=== PATIENT | female | born 1990 | race Caucasian/White ===

== ENCOUNTER 2017-07-25 18:05 | Outpatient (CLI) | payer BC ==
[2017-07-25 18:31] VITALS: BP 130/79; PULSE 89; RESP 16; TEMP 98.2
--- NOTE | 2017-07-25 20:18 | P.MSEPDOC ---
Presenting Problems - Arrival Data Date of Arrival on Unit: 07/25/17 Time of Arrival on Unit: 18:05 Mode of Transport: Ambulatory - Complaint OB-Reason for Admission/Chief Complaint: Syncope/Fainting Spell Medical History - Information : 2 Para: 1 Term: 1 : 0 Abortions: Spontaneous or Elective: 0 Number of Living Children: 1 - Gestational Age Gestational Age by SUSANA (wks/days): 29 Weeks and 5 Days Review of Systems - Review of Systems Constitutional: No problems Breast: No problems ENT: No problems Cardiovascular: No problems Respiratory: No problems Gastrointestinal: No problems Genitourinary: No problems Musculoskeletal: No problems Neurological: No problems Skin: No problems Vital Signs - Temperature Temperature: 98.2 F Temperature Source: Oral - Pulse Right Sitting Brachial Pulse Rate: 89 Pulse Assessment Method: Automatic Cuff - Respirations Respiratory Rate: 16 Oxygen Delivery Method: Room Air O2 Sat by Pulse Oximetry: 99 - Blood Pressure Right Arm Sitting Blood Pressure: 130/79 Blood Pressure Mean: 96 Blood Pressure Source: Automatic Cuff Medical Screen Scoring (Pre) - Cervical Exam Dilation: Exam Deferred Effacement: Exam Deferred Membranes: Intact - Uterine Contractions Frequency: N/A Duration: N/A Intensity: N/A - Maternal Vital Signs Maternal Temperature: N/A Maternal Blood Pressure: N/A Signs of Preeclampsia: N/A Maternal Respirations: N/A - Total Score Total Score (Pre): 0 - Level of Risk Level of Risk: Low (0-5) Physician Notification (Pre) - Physician Notified Physician Notified Date: 07/25/17 Physician Notified Time: 18:25 Physician/Practitioner Notifed:: Shay Spoke With: Shay New Order Received: Yes - Notification Comment Comment: Negative Amnisure, OB spec exam-advsd pt to purchase Monistat 3 OTC. Has appt 08/01/17. Disposition - Disposition OB Disposition: Discharge to home, Written follow up instructions reviewed Discharge Date: 07/25/17 I agree with the RN Medical Screening Exam: Yes Risk & Benefit of care provided described in d/c instruction: Yes Diagnosis: FALSE LABOR BEFORE 37 COMPLETED WEEKS OF GEST, THIRD TRI
== END 2017-07-25 18:38 | disposition home or self-care (01) ==
LOC: FBPOP 18:05
PROVIDERS: ATTEND Obstetrics & Gynecology
DX: O47.03 False labor before 37 completed weeks of gestation, third trimester (principal); Z3A.29 29 weeks gestation of pregnancy
CPT/HCPCS: 59025; 99213

== ENCOUNTER 2017-10-01 05:32 | Inpatient (IN) | payer BC ==
[2017-10-01] MEDS ORDERED: OXYTOCIN 20 UNITS/1000 ML NS 1,000 ML IV SCH ×2 (05:46→13:02)
[2017-10-01] MEDS ORDERED: METHYLERGONOVINE 0.2 MG/ML 1 ML AMP IM PRN (05:46)
[2017-10-01] MEDS ORDERED: CARBOPROST TROMETHAMINE 250 MCG/ML 1 ML AMP IM PRN (05:46)
[2017-10-01] MEDS ORDERED: OXYTOCIN 10 UNIT/ML 1 ML VIAL IM PRN (05:46)
[2017-10-01] MEDS ORDERED: LACTATED RINGERS 1,000 ML IV SCH (05:46)
[2017-10-01] MEDS ORDERED: LIDOCAINE 1% (PF) 10 MG/ML (30 ML SDV) SQ PRN (05:46)
[2017-10-01] MEDS ORDERED: TERBUTALINE 1 MG/ML VIAL SQ PRN (05:46)
[2017-10-01 06:21] LABS: Basophils % (A) 1 %; Eosinophils # (A) 0.1 k/uL (0-0.7); Eosinophils % (A) 1 %; HCT 40.8 % (34.0-46.0); HGB 13.7 gm/dL (11.4-16.0); Lymphocytes # (A) 2.2 k/uL (1.0-4.8); Lymphocytes % (A) 27 %; MCH 31.5 pg (25.0-35.0); MCHC 33.6 g/dL (31.0-37.0); MCV 93.8 fL (80.0-100.0); Mean Platelet Volume 7.1; Monocytes # (A) 0.5 k/uL (0-1.0); Monocytes % (A) 6 %; Neutrophils % (A) 63 %; Platelet Count 199 k/uL (150-450); RBC 4.35 m/uL (3.80-5.40); RDW 14.2 % (11.5-15.5)
--- NOTE | 2017-10-01 06:22 | P.HPOB ---
History of Present Illness H&P Date: 10/01/17 Chief Complaint: Requesting induction of labor This patient is a pleasant 27-year-old 3 para 1 female estimated date of confinement 10/05/2017 estimated gestational age 39-3/7 weeks who presents to labor and delivery for requested induction of labor. She is care has been uncomplicated. Patient comfortable has a favorable cervix requesting induction at this time. Review of Systems Gastrointestinal: Reports heartburn Genitourinary: Reports Menstruation: Reports amenorrhea Past Medical History Past Medical History: No Reported History History of Any Multi-Drug Resistant Organisms: None Reported Additional Past Surgical History / Comment(s): Patient's had bilateral ear tube placement. Past Anesthesia/Blood Transfusion Reactions: No Reported Reaction Past Psychological History: No Psychological Hx Reported Smoking Status: Never smoker Past Alcohol Use History: None Reported Past Drug Use History: None Reported - Past Family History Mother Family Medical History: No Reported History Medications and Allergies Home Medications Medication Instructions Recorded Confirmed Type Iba-Jcrj-Bagzc Acid 1 each PO DAILY 07/08/14 10/01/17 History [-U Capsule] Allergies Allergy/AdvReac Type Severity Reaction Status Date / Time No Known Allergies Allergy Verified 10/01/17 05:45 Exam - Vital Signs Vital signs: Intake and Output 09/30/17 09/30/17 10/01/17 14:59 22:59 06:59 Other: # Voids 1 Weight 75.75 kg - OBG Physical Exam Abdomen: bowel sounds normal, no diffuse tenderness, no bruit present, no guarding noted, no hepatomegaly, no splenomegaly, no mass Vulva: both: normal Vagina: normal moisture, no discharge Cervix: no lesion (Cervix is 2 cm dilated 50% effaced -2 station.), no discharge Uterus: enlarged (Fundal height is 39 cm.) Results blood work shows she is A positive, rubella immune, RPR nonreactive, hepatitis B negative, Glucola was normal, group B strep was negative, ultrasounds shows normal anatomy with estimated weight at 7-1/2-7-3/4 pounds. Assessment and Plan Assessment: This is a pleasant 27-year-old 3 para 1 female 39-3/7 weeks gestation who is admitted to labor and delivery for requested induction of labor. Plan is induction of labor and anticipate vaginal delivery. (1) Third trimester Current Visit: Yes Status: Acute Code(s): Z34.93 - ENCNTR FOR SUPRVSN OF NORMAL PREG, UNSP, THIRD TRIMESTER SNOMED Code(s): 25999196 (2) Elective induction of labor planned Current Visit: Yes Status: Acute Code(s): ZGY9481 - SNOMED Code(s): 012468108
[2017-10-01 08:18] VITALS: BMI 32.5
[2017-10-01] MEDS ORDERED: BUPIVACAINE (PF) 0.25% 30 ML VIAL ONE (09:46)
[2017-10-01] MEDS ORDERED: fentaNYL (PF) 50 MCG/ML 5 ML AMP ONE (09:46)
[2017-10-01] MEDS ORDERED: SODIUM CHLORIDE 0.9% 100 ML BAG ONE (09:46)
[2017-10-01] MEDS ORDERED: ZOLPIDEM 5 MG TAB PO PRN (13:02)
[2017-10-01] MEDS ORDERED: LANOLIN CREAM 5 GM TUBE TOPICAL PRN (13:02)
[2017-10-01] MEDS ORDERED: HYDROCORTISONE 2.5% RECTAL CREAM 30 GM TUBE RECTAL PRN (13:02)
[2017-10-01] MEDS ORDERED: ACETAMINOPHEN TAB 325 MG TAB PO PRN (13:02)
[2017-10-01] MEDS ORDERED: BISACODYL 10 MG SUPP RECTAL PRN (13:02)
[2017-10-01] MEDS ORDERED: BENZOCAINE/MENTHOL SPRAY 1 GM/SPRAY AEROSOL TOPICAL PRN (13:02)
[2017-10-01] MEDS ORDERED: diphenhydrAMINE 25 MG CAP PO PRN (13:02)
[2017-10-01] MEDS ORDERED: SIMETHICONE 80 MG CHEWABLE PO PRN (13:02)
[2017-10-01] MEDS ORDERED: WITCH HAZEL 1 EACH MED..PAD TOPICAL PRN (13:02)
[2017-10-01] MEDS ORDERED: diphenhydrAMINE 50 MG/ML 1 ML VIAL IVP PRN (13:02)
--- NOTE | 2017-10-01 13:20 | P.PROBDLV ---
Vaginal Delivery Note - . Vaginal Delivery Note: Normal vaginal delivery viable female Apgars 8 and 9 delivery time is 1254 hrs. Please see dictated H&P for intimate details of this patient's admission. In brief summary this is a pleasant 27-year-old 3 para 1 female 39-3/7 weeks gestation who is admitted to labor and delivery for requested induction of labor. On admission patient is to simmers dilated has artificial rupture membranes for clear fluid. Labor is induced with Pitocin per protocol. Patient progresses quickly and does get an epidural for pain control. Patient then gets to complete pushes approximately 2 or 3 times pushes the head to the perineum. Posterior perineum was supported and we have controlled delivery of the 's head over the perineum. Mouth and nares are bulb suctioned. There is a nuchal cord which is very loose. Gentle downward traction we have delivery the anterior and posterior shoulder and rest this infant's body. Is a vigorous viable female Apgars are 8 and 9 delivery time is 1254 hrs. After delivery of the the baby is late on the mother' s abdomen and after cord is known pulsating is doubly clamped cut and. The cord appears to be trivascular. Placenta is then spontaneously delivered intact. Inspection of the perineum shows a first-degree laceration which is repaired with 3-0 Vicryl usual fashion. Excellent reapproximation is noted. Estimated blood loss 100 mL. There are no complications. Infant and mother stable delivery room.
[2017-10-01] MEDS: IBUPROFEN 600 MG TAB PO PRN ×2 (13:50→21:30)
[2017-10-01] MEDS: SENNOSIDES-DOCUSATE SODIUM 1 EACH TAB PO SCH (19:52)
[2017-10-01 21:01] VITALS: RESP 18
[2017-10-02] MEDS: IBUPROFEN 600 MG TAB PO PRN ×2 (03:11→11:03)
--- NOTE | 2017-10-02 06:27 | P.PNOBGVD ---
Subjective - Subjective Patient reports: Reports appetite normal, Reports voiding normally, Reports pain well controlled, Reports ambulating normally : doing well Objective - Latest Vital Signs Latest vital signs: Vital Signs Temp Pulse Resp BP Pulse Ox 10/02/17 00:00 98.1 F 72 18 138/75 96 10/01/17 20:00 98.1 F 87 18 138/90 97 10/01/17 16:00 97.9 F 86 16 130/62 10/01/17 15:03 97.9 F 86 16 130/62 10/01/17 14:55 90 16 132/82 10/01/17 14:20 97.4 F L 88 16 128/73 10/01/17 14:05 77 16 116/72 10/01/17 13:48 81 16 130/82 10/01/17 13:35 77 16 133/89 10/01/17 13:20 79 16 122/65 99 Intake and Output 10/01/17 10/01/17 10/02/17 14:59 22:59 06:59 Output Total 500 Balance -500 Output: Urine 400 Estimated Blood Loss 100 Other: # Voids 1 1 Weight 75.75 kg - Exam Lungs: bilateral: normal Chest: Normal S1, Normal S2 Extremities: Present: normal Abdomen: Present: normal appearance, soft Uterus: Present: normal, firm Assessment and Plan Assessment: Post day #1. Patient's is resting without complaints. Vital signs are stable, uterus is firm nontender, she is having normal lochia. My impression this is a normal course. Plan is to continue routine care and patient does wish to go home later today. (1) Third trimester Current Visit: Yes Status: Acute Code(s): Z34.93 - ENCNTR FOR SUPRVSN OF NORMAL PREG, UNSP, THIRD TRIMESTER SNOMED Code(s): 08737693 (2) Elective induction of labor planned Current Visit: Yes Status: Acute Code(s): DBT2564 - SNOMED Code(s): 151334084
--- NOTE | 2017-10-02 06:32 | P.DS ---
Providers Date of admission: 10/01/17 05:32 Expected date of discharge: 10/02/17 Attending physician: Isaias Day Primary care physician: Stated None - Discharge Diagnosis(es) (1) Third trimester Current Visit: Yes Status: Acute (2) Elective induction of labor planned Current Visit: Yes Status: Acute Hospital Course: Please see dictated H&P for intimate details of this patient's admission. Brief summary this pleasant 27-year-old 3 para 1 female 39-3/7 weeks gestation who is admitted to labor and delivery for elective induction of labor. Patient is uncomplicated induction of labor goes on to have a vaginal delivery viable female infant. Please see dictated delivery note. day #1 patient without complaints wishes to go home. Patient's felt be stable for discharge home follow up with me in 6 weeks. Procedures: Normal vaginal delivery. Patient Condition at Discharge: Good Plan - Discharge Summary New Discharge Prescriptions: New Ibuprofen [Motrin] 600 mg PO Q6HR PRN #40 tab PRN Reason: Mild Pain Or Fever >= 100.5 No Action Elx-Vwki-Dalwc Acid [-U Capsule] 1 each PO DAILY Discharge Medication List Lte-Crgh-Vumab Acid [-U Capsule] 1 each PO DAILY 07/08/14 [ History] Ibuprofen [Motrin] 600 mg PO Q6HR PRN #40 tab 10/02/17 [Rx] Follow up Appointment(s)/Referral(s): Isaias Day MD [STAFF PHYSICIAN] - 11/09/17 9:30 am Patient Instructions/Handouts: Vaginal Delivery (DC) Activity/Diet/Wound Care/Special Instructions: No intercourse or anything per vagina for 6 weeks. Please call if any fever, chills, excessive vaginal bleeding, and/or abdominal pain. Discharge Disposition: HOME SELF-CARE
[2017-10-02] MEDS: SENNOSIDES-DOCUSATE SODIUM 1 EACH TAB PO SCH (09:54)
[2017-10-02 11:22] VITALS: BP 130/57; PULSE 77; TEMP 98
== END 2017-10-02 16:00 | disposition home or self-care (01) | DRG 775 ==
LOC: 4FBP 05:32
PROVIDERS: ADMIT Obstetrics & Gynecology; ATTEND Obstetrics & Gynecology
PROC: 00HU33Z Insertion of Infusion Device into Spinal Canal, Percutaneous Approach (ICD-10-PCS; principal; 2017-10-01)
PROC: 3E033VJ Introduction of Other Hormone into Peripheral Vein, Percutaneous Approach (ICD-10-PCS; principal; 2017-10-01)
PROC: 3E0R3NZ Introduction of Analgesics, Hypnotics, Sedatives into Spinal Canal, Percutaneous Approach (ICD-10-PCS; principal; 2017-10-01)
PROC: 10907ZC Drainage of Amniotic Fluid, Therapeutic from Products of Conception, Via Natural or Artificial Opening (ICD-10-PCS; principal; 2017-10-01)
PROC: 0HQ9XZZ Repair Perineum Skin, External Approach (ICD-10-PCS; principal; 2017-10-01)
PROC: 10E0XZZ Delivery of Products of Conception, External Approach (ICD-10-PCS; principal; 2017-10-01)
DX: O69.81X0 Labor and delivery complicated by cord around neck, without compression, not applicable or unspecified (principal); Z37.0 Single live birth; O70.0 First degree perineal laceration during delivery; Z3A.39 39 weeks gestation of pregnancy
CPT/HCPCS: 85025; 88307